=== PATIENT | male | born 1990 | race Hispanic/Latino ===

== ENCOUNTER 2021-07-01 16:47 | Emergency (ER) | payer OTHER ==
[~2021-07-01] VITALS: Ht 167.6 cm; Wt 99.8 kg
[2021-07-01 17:30] LABS: APPEARANCE,URINE SL CLOUDY (CLEAR); BILIRUBIN,URINE NEGATIVE (NEGATIVE); COLOR,URINE ORANGE (YELLOW); GLUCOSE, URINE (UA) NEGATIVE (NEGATIVE); KETONES,URINE 5 mg/dL (NEGATIVE); LEUKOCYTE ESTERASE ,URINE NEGATIVE (NEGATIVE); NITRATE,URINE NEGATIVE (NEGATIVE); OCCULT BLOOD,URINE MODERATE (NEGATIVE); PROTEIN,URINE 100 mg/dL (NEGATIVE); UROBILINOGEN,URINE 0.2 mg/dL (0.2-1.0)
[2021-07-01 17:45] LABS: BASOPHILS % (AUTO) 0.1 % (0.0-5.0); EOSINOPHILS % (AUTO) 0.5 % (0.0-8.0); HEMATOCRIT 44.4 % (42-54); LYMPHOCYTES % (AUTO) 21.4 % (21.0-51.0); MEAN CORPUSCULAR HEMOGLOBIN 30.6 pg (27.0-33.0); MEAN CORPUSCULAR HGB CONC 34.9 g/dL (32.0-36.0); MEAN CORPUSCULAR VOLUME 87.6 fL (79-99); MONOCYTES % (AUTO) 6.6 % (3.0-13.0); NEUTROPHILS % (AUTO) 70.9 % (40.0-77.0); PLATELET COUNT (AUTO) 191 K/uL (130-400); RED BLOOD CELL COUNT(AUTO) 5.07 MIL/uL (4.50-6.20); RED CELL DISTRIBUTION WIDTH 12.6 % (11.0-15.5)
[2021-07-01 17:54] LABS: POTASSIUM 3.9 mmol/L (3.5-5.1)
[2021-07-01 17:58] LABS: ALBUMIN 4.8 g/dL (3.5-5.0); BILIRUBIN,TOTAL 0.9 mg/dL (0.2-1.0); TOTAL PROTEIN, SERUM 9.3 g/dL (6.0-8.3)
[2021-07-01 17:59] LABS: BACTERIA,URINE Few /HPF (None Seen)
[2021-07-01 18:00] LABS: SQUAMOUS EPITHELIAL CELL,UR Moderate /HPF (0-2)
[2021-07-01 18:01] LABS: MUCUS,URINE Few LPF (None Seen)
[2021-07-01] MEDS ORDERED: CEFTRIAXONE 1G VIAL IV ONE (18:30)
[2021-07-01] MEDS ORDERED: 0.9%NACL 1000ML 1,000 ML IV ONE (18:30)
[2021-07-01] MEDS ORDERED: CEPH500B PO (18:53)
[2021-07-01] MEDS ORDERED: NAPR500T6 PO (18:53)
[2021-07-01] MEDS ORDERED: ONDA4TAB10 PO (18:53)
[2021-07-01] MEDS ORDERED: TAMS-1 PO (18:53)
[2021-07-01 19:11] VITALS: BP 147/84
[2021-07-02] MEDS ORDERED: METO-296 PO (05:54)
[2021-07-02] MEDS ORDERED: DICY20TA2 PO (05:54)
== END 2021-07-01 19:11 | disposition home or self-care (01) ==
LOC: EDH 16:47
DX: N20.1 Calculus of ureter (principal)
CPT/HCPCS: 36415; 74176; 80053; 81001; 85025; 96361; 96374; 99284; J0696; J7030